=== PATIENT | female | born 1950 | race Caucasian/White ===

== ENCOUNTER 2017-11-23 07:01 | Day surgery (SDC) ==
[2017-11-23] MEDS: BETADINE OPTH PREP OP PRN ×2 (07:15→08:18)
[2017-11-23] MEDS: TETRACAINE 0.5% UNIT-DOSE OP PRN ×2 (07:15→08:18)
[2017-11-23] MEDS: CYCLOGYL 2% OPTH OP PRN ×3 (07:16→07:26)
[2017-11-23] MEDS ORDERED: LIDOCAINE 1% 20 ML MDV ID STA (07:19)
[2017-11-23] MEDS ORDERED: ZOFRAN 4 MG/2 ML IVP ONE (07:19)
[2017-11-23] MEDS ORDERED: BRIMONIDINE TARTRATE 0.2% OPTH SOL OP PRN (07:19)
[2017-11-23] MEDS ORDERED: ZOFRAN 4 MG/2 ML ONE (08:20)
[2017-11-23] MEDS ORDERED: SUBLIMAZE ONE (08:20)
[2017-11-23] MEDS ORDERED: VERSED ONE (08:20)
[2017-11-23] MEDS: LIDOCAINE 1%/PHENYLEPHRINE 1.5% BSS (SURGERY) INTRAOCULA ONE ×2 (08:22→08:27)
[2017-11-23] MEDS: BSS WITH EPINEPHRINE OP ONE ×2 (08:22→08:27)
[2017-11-23] MEDS: DEX-MOXI-KETOR OPTH INJ 1/0.5/0.4 MG/ML IO ONE ×2 (08:22→08:27)
[2017-11-23 11:31] VITALS: TEMP 98.2
[2017-11-23 16:11] VITALS: BP 127/78
== END 2017-11-23 09:30 | disposition home or self-care (01) ==
LOC: SURG 07:01
PROVIDERS: ATTEND Ophthalmology
DX: H25.812 Combined forms of age-related cataract, left eye (principal)